=== PATIENT | female | born 1980 | race Caucasian/White ===

== ENCOUNTER 2017-01-16 10:30 | Inpatient (IN) | payer OTHER ==
[~2017-01-16 10:30] MED LIST: CITRIC ACID/SODIUM CITRATE 30 ML UNIT-DOSE CUP PO ONE; ELECTROLYTE-148 SOLN 500 ML IV ONE
--- NOTE | 2017-01-16 10:50 | HP ---
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: Alzheimer's, CVA, Dementia, Migraine, Multiple Sclerosis, Peripheral Neuropathy, Parkinson's, Seizure, Syncope, TIA, Vertigo, Other Cardiovascular: No: AFIB, Aneurysm, Aortic Insufficiency, Aortic Stenosis, CAD, CHF, Deep Vein Thrombosis, HTN, Hyperlipdemia, PA, Mitral Insufficiency, Mitral Stenosis, Murmur, Pulmonary Hypertension, Other Pulmonary: No: Asthma, Bronchitis, Cancer, COPD, O2 Dependent, Pneumonia, Previously Intubated, Pulmonary Embolus, Pulmonary Fibrosis, Sleep Apnea, Other Gastrointestinal: No: Ascites, Cancer, Constipation, Crohn's Disease, Diverticulitis, Diverticulosis, Esophageal Varices, Gastritis, GERD, GI Bleed, Hemorrhoids, Hiatal Hernia, Inflamatory Bowel Disease, Irritable Bowel Disease, Pancreatitis, Peptic Ulcer Disease, Ulcerative Colitis, Other Hepatobiliary: No: Cirrhosis, Cholelithiasis, Cholecystitis, Choledocholithiasis , Hepatitis A, Hepatitis B, Hepatitis C, Other Renal/: No: Renal Failure, Renal Inusuff, BPH, Cancer, Hematuria, Hemodialysis , Neurogenic Bladder, Renal Calculi, UTI, Other Reproductive: No: Ectopic , Endometriosis, Fibroids, PID, Polycystic Ovary Syndrome, Postmenopausal, Other Heme/Onc: No: Anemia, B12 Deficiency, Bleeding Disorder, Cancer, Current Chemotherapy, Current Radiation Therapy, Hemochromatosis, Hypercoaguable State, Myeloproliferative Synd, Sickle Cell Disease, Sickle Cell Trait, Thrombocytopenia, Other Infectious Disease: No: AIDS, C-Diff, Herpes Zoster, HIV, MRSA, STD's, Tuberculosis, VREF, Other Psych: No: Addictions, Anxiety, Bipolar, Depression, Panic, Psychosis, Schizophrenia, Other Musculoskeletal: No: Bursitis, Chronic low back pain, Hemiparesis, Hemiplegia, Osteoarthritis, Paraplegia, Other Rheumatology: No: Fibromyalgia, Gout, Lupus, Rheumatoid Arthritis, Sarcoidosis, Vasculitis, Other ENT: No: Allergic Rhinitis, Sinusitis, Other Endocrine: No: [place]'s Disease, Erich's Disease, Diabetes Insipidus, Diabetes Mellitus, Hyperparathyroidism, Hyperthyroidism, Hypothyroidism, Osteopenia, SIADH, Other Dermatology: No: Basal Cell, Cellulitis, Eczema, Melanoma, Psoriasis, Squamous Cell, Other - Past Surgical History Past Surgical History: No: None, AAA Repair, AICD, Amputation, Appendectomy, Arthrosocopy, AV Fistula/Graft, Bariatric Surgery, Breast Biopsy, Bypass, CABG, Carotid Endarterectomy, Cataract Removal, Cholecystectomy, Colectomy, Colonoscopy, Colostomy, Craniotomy, , Cystectomy, Hernia Repair, Hysterectomy, Ileal Conduit, Ileosotomy, Joint Replacement, Kidney Transplant, Laminectomy, Liver Transplant, Mastectomy, Nephrectomy, Oopherectomy, Orchiectomy, Permanent Pacemaker, Prostatectomy, Splenectomy, Stent, Thoracotomy , TURP, Tonsillectomy, Tubal Ligation, Upper Endoscopy, Valve Replacement, Vasectomy, Vein Stripping/Ligation - Smoking History Smoking history: Never smoked - Alcohol/Substance Use Hx Alcohol Use: No Home Medications - Allergies Allergies/Adverse Reactions: Allergies Allergy/AdvReac Type Severity Reaction Status Date / Time No Known Allergies Allergy Verified 01/16/17 10:48 Review of Systems - Review of Systems Constitutional: reports: No Symptoms Eyes: reports: No Symptoms HENT: reports: No Symptoms Neck: reports: No Symptoms Cardiovascular: reports: No Symptoms Respiratory: reports: No Symptoms Gastrointestinal: reports: No Symptoms Genitourinary: reports: No Symptoms Breasts: reports: No Symptoms Reported Musculoskeletal: reports: No Symptoms Integumentary: reports: No Symptoms Neurological: reports: No Symptoms Endocrine: reports: No Symptoms Hematology/Lymphatic: reports: No Symptoms Physical Examination Constitutional: Yes: Well Nourished Eyes: Yes: WNL HENT: Yes: WNL Neck: Yes: WNL Cardiovascular: Yes: WNL Respiratory: Yes: WNL Gastrointestinal: Yes: WNL ...Rectal Exam: Yes: WNL Renal/: Yes: WNL Musculoskeletal: Yes: WNL Extremities: Yes: WNL Integumentary: Yes: WNL Neurological: Yes: WNL ...Motor Strength: WNL Psychiatric: Yes: WNL Assessment/Plan as sabovve for cs labs
[2017-01-16 10:58] VITALS: BMI 28.5
[2017-01-16] MEDS: ELECTROLYTE-148 SOLN 1,000 ML IV SCH (11:05)
[2017-01-16] MEDS ORDERED: METHYLERGONOVINE MALEATE 0.2 MG/1 ML AMP IM PRN (12:05)
[2017-01-16] MEDS ORDERED: IBUPROFEN 600 MG TABLET (FP) PO PRN (12:05)
[2017-01-16] MEDS ORDERED: ONDANSETRON 4 MG/2 ML VIAL IVPB PRN (12:45)
[2017-01-16] MEDS: IBUPROFEN 800 MG/8 ML IJ IVPB PRN ×2 (14:25→21:36)
[2017-01-16] MEDS ORDERED: INFLUENZA VACCINE 45 MCG/0.5 ML (MDV 16-17) IM ONE (15:28)
[2017-01-16] MEDS: OXYTOCIN 20 UNITS in 0.9% NS 1,000 ML IV SCH (16:39)
[2017-01-16] MEDS: DEXTROSE 5%-LACTATED RINGERS 1,000 ML IV SCH (16:43)
[2017-01-16] MEDS: FERROUS SO4 325 MG TABLET (FP) PO SCH (17:31)
[2017-01-17] MEDS: IBUPROFEN 800 MG/8 ML IJ IVPB PRN (05:46)
[2017-01-17 08:18] LABS: BASOPHIL 0.6 % (0-2.0); EOSINOPHIL 1.1 % (0-4.5); MCH 26.7 pg (25.7-33.7); MCHC 31.9 g/dl (32.0-36.0); MEAN CELL VOLUME 83.6 fl (80-96); MEAN PLT VOLUME 9.4 fl (7.5-11.1); NEUTROPHILS 81.5 % (42.8-82.8); PLATELET COUNT 171 K/MM3 (134-434); RDW 17.2 % (11.6-15.6)
[2017-01-17] MEDS: FERROUS SO4 325 MG TABLET (FP) PO SCH ×2 (09:41→21:54)
[2017-01-17] MEDS ORDERED: INFLUENZA VACCINE 45 MCG/0.5 ML (MDV 16-17) IM ONE (10:00)
[2017-01-17] MEDS ORDERED: DIPHTH,PERTUSS(ACELL),TET 0.5 ML DISP.SYRIN IM ONE (10:00)
[2017-01-17] MEDS ORDERED: INFLUENZA VACCINE 60 MCG/0.5 ML (P/F DISP.SYRIN 16-17) IM ONE (10:00)
--- NOTE | 2017-01-17 10:10 | PN ---
Post Progress Note - Subjective Subjective: c/oo pain only while getting out of bed. voided twice after newman was discontinued Post Day: 1 Type of Delivery: Primary C/S Vital Signs: Vital Signs Temperature 98.5 F 01/17/17 06:00 Pulse Rate 91 H 01/17/17 06:00 Respiratory Rate 18 01/17/17 06:00 Blood Pressure 121/72 01/17/17 06:00 O2 Sat by Pulse Oximetry (%) 100 01/16/17 14:00 Breast Exam: Yes: Soft, Other (plans to BF ). No: Engorged Uterus: Yes: Fundus Firm, Fundus below umbilicus Incision: Yes: Dressing dry and intact. No: Redness, Oozing Abdomen/GI: Yes: Abdomen soft (bs active), Tender, Passing flatus, Tolerating PO (lear liqiuds ). No: Abdominal Distention Lochia: Yes: Rubra Lochia, amount: Moderate Extremities: Yes: Calves non-tender Perineum: Yes: Intact Activity: Ambulating - Labs Labs: CBC WBC 11.0 K/mm3 (4.0-10.0) H 01/17/17 07:30 RBC 3.29 M/mm3 (3.60-5.2) L D 01/17/17 07:30 Hgb 8.8 GM/dL (10.7-15.3) L D 01/17/17 07:30 Hct 27.5 % (32.4-45.2) L D 01/17/17 07:30 MCV 83.6 fl (80-96) 01/17/17 07:30 MCHC 31.9 g/dl (32.0-36.0) L 01/17/17 07:30 RDW 17.2 % (11.6-15.6) H 01/17/17 07:30 Plt Count 171 K/MM3 (134-434) D 01/17/17 07:30 MPV 9.4 fl (7.5-11.1) 01/17/17 07:30 Neutrophils % 81.5 % (42.8-82.8) 01/17/17 07:30 Lymphocytes % 9.4 % (8-40) D 01/17/17 07:30 Monocytes % 7.4 % (3.8-10.2) 01/17/17 07:30 Eosinophils % 1.1 % (0-4.5) 01/17/17 07:30 Basophils % 0.6 % (0-2.0) 01/17/17 07:30 Assessment/Plan poc/section stable anemia plan ct po care
--- NOTE | 2017-01-17 10:36 | PN ---
Progress Note (short form) - Note Progress Note: 36F POD1 s/p C section under spinal with duramorph. Pt is doing well, states that pain is well controlled, reports no anesthetic complications. AVSS, sensory and motor function is intact in both lower extremities.
[2017-01-17] MEDS: ACETAMINOPHEN 325 MG TABLET (FP) PO PRN ×3 (12:46→23:41)
[2017-01-17] MEDS: SIMETHICONE 80 MG TAB.CHEW (FP) PO PRN ×3 (12:46→23:41)
[2017-01-17] MEDS: IBUPROFEN 600 MG TABLET (FP) PO PRN ×3 (12:47→23:41)
--- NOTE | 2017-01-18 06:51 | PN ---
Post Progress Note Post Day: 2 Type of Delivery: Primary C/S Vital Signs: Vital Signs Temperature 98.9 F 01/17/17 22:00 Pulse Rate 74 01/17/17 22:00 Respiratory Rate 18 01/17/17 22:00 Blood Pressure 108/59 01/17/17 22:00 O2 Sat by Pulse Oximetry (%) 100 01/16/17 14:00 Breast Exam: Yes: Soft Uterus: Yes: Fundus Firm Incision: Yes: Dressing dry and intact Abdomen/GI: Yes: Abdomen soft Lochia: Yes: Rubra Lochia, amount: Small Extremities: Yes: Calves non-tender Perineum: Yes: Intact - Labs Labs: CBC WBC 11.0 K/mm3 (4.0-10.0) H 01/17/17 07:30 RBC 3.29 M/mm3 (3.60-5.2) L D 01/17/17 07:30 Hgb 8.8 GM/dL (10.7-15.3) L D 01/17/17 07:30 Hct 27.5 % (32.4-45.2) L D 01/17/17 07:30 MCV 83.6 fl (80-96) 01/17/17 07:30 MCHC 31.9 g/dl (32.0-36.0) L 01/17/17 07:30 RDW 17.2 % (11.6-15.6) H 01/17/17 07:30 Plt Count 171 K/MM3 (134-434) D 01/17/17 07:30 MPV 9.4 fl (7.5-11.1) 01/17/17 07:30 Neutrophils % 81.5 % (42.8-82.8) 01/17/17 07:30 Lymphocytes % 9.4 % (8-40) D 01/17/17 07:30 Monocytes % 7.4 % (3.8-10.2) 01/17/17 07:30 Eosinophils % 1.1 % (0-4.5) 01/17/17 07:30 Basophils % 0.6 % (0-2.0) 01/17/17 07:30 Assessment/Plan asa selena oob reg diet pain control
[2017-01-18] MEDS: SIMETHICONE 80 MG TAB.CHEW (FP) PO PRN ×2 (08:05→15:35)
[2017-01-18] MEDS: IBUPROFEN 600 MG TABLET (FP) PO PRN ×2 (08:06→15:36)
[2017-01-18] MEDS: oxyCODONE HCL 5 MG TABLET PO PRN ×2 (08:07→15:35)
[2017-01-18] MEDS: FERROUS SO4 325 MG TABLET (FP) PO SCH ×2 (08:11→17:23)
[2017-01-18] MEDS: DEXTROSE 5%-LACTATED RINGERS 1,000 ML IV SCH (12:00)
[2017-01-18] MEDS: ELECTROLYTE-148 SOLN 1,000 ML IV SCH (12:00)
[2017-01-18] MEDS: OXYTOCIN 20 UNITS in 0.9% NS 1,000 ML IV SCH (12:23)
[2017-01-18] MEDS: BISACODYL 10 MG SUPP.RECT RC PRN (15:45)
[2017-01-18] MEDS ORDERED: oxyCODONE HCL 5 MG TABLET PO PRN (15:54)
[2017-01-19] MEDS: ACETAMINOPHEN 325 MG TABLET (FP) PO PRN ×2 (05:08→19:27)
[2017-01-19] MEDS: oxyCODONE HCL 5 MG TABLET PO PRN ×3 (05:08→19:26)
[2017-01-19 08:11] LABS: MCH 27.7 pg (25.7-33.7); MCHC 32.9 g/dl (32.0-36.0); MEAN CELL VOLUME 84.3 fl (80-96); PLATELET COUNT 217 K/MM3 (134-434); RDW 16.9 % (11.6-15.6); WHITE BLOOD COUNT 10.2 K/mm3 (4.0-10.0)
--- NOTE | 2017-01-19 08:13 | PN ---
Progress Note (short form) - Note Progress Note: pod 2 doing well , has cramps Last Vital Signs Temp Pulse Resp BP Pulse Ox 98.1 F 78 18 118/77 100 01/18/17 22:00 01/18/17 22:00 01/18/17 22:00 01/18/17 22:00 01/16/17 14:00 abdomen soft, no distension, no cva , incision dry, clean no calf tenderness no excess vaginal bleeding impression pod 2 afebrile plan cbc , ambulate
[2017-01-19 09:28] LABS: METAMYELOCYTE 1 % (0-2); PLATELET ESTIMATE ADEQUATE (NORMAL)
[2017-01-19] MEDS: SIMETHICONE 80 MG TAB.CHEW (FP) PO PRN ×2 (11:07→19:27)
[2017-01-19] MEDS: FERROUS SO4 325 MG TABLET (FP) PO SCH ×2 (11:07→17:24)
[2017-01-19] MEDS: IBUPROFEN 600 MG TABLET (FP) PO PRN (11:14)
[2017-01-19] MEDS: BISACODYL 10 MG SUPP.RECT RC PRN (20:57)
[2017-01-20] MEDS: IBUPROFEN 600 MG TABLET (FP) PO PRN (08:36)
[2017-01-20] MEDS: ACETAMINOPHEN 325 MG TABLET (FP) PO PRN (08:37)
[2017-01-20] MEDS: SIMETHICONE 80 MG TAB.CHEW (FP) PO PRN (08:38)
[2017-01-20] MEDS: FERROUS SO4 325 MG TABLET (FP) PO SCH (09:12)
--- NOTE | 2017-01-20 11:07 | PN ---
Post Progress Note - Subjective Subjective: no c/o dizziness , no c/o pain voiding without difficulty Post Day: 4 Type of Delivery: Primary C/S Vital Signs: Vital Signs Temperature 97.9 F 01/19/17 22:00 Pulse Rate 92 H 01/19/17 22:00 Respiratory Rate 18 01/19/17 22:00 Blood Pressure 126/82 01/19/17 22:00 O2 Sat by Pulse Oximetry (%) 100 01/16/17 14:00 Breast Exam: Yes: Soft. No: Engorged Uterus: Yes: Fundus Firm, Fundus below umbilicus Incision: Yes: Mariano intact (to be removed ). No: Redness, Oozing Abdomen/GI: Yes: Abdomen soft, Passing flatus, Tolerating PO (diet). No: Abdominal Distention, Tender Lochia: Yes: Rubra Lochia, amount: Moderate Extremities: Yes: Calves non-tender Perineum: Yes: Intact Activity: Ambulating - Labs Labs: CBC WBC 10.2 K/mm3 (4.0-10.0) H 01/19/17 07:20 RBC 3.13 M/mm3 (3.60-5.2) L 01/19/17 07:20 Hgb 8.7 GM/dL (10.7-15.3) L 01/19/17 07:20 Hct 26.3 % (32.4-45.2) L 01/19/17 07:20 MCV 84.3 fl (80-96) 01/19/17 07:20 MCHC 32.9 g/dl (32.0-36.0) 01/19/17 07:20 RDW 16.9 % (11.6-15.6) H 01/19/17 07:20 Plt Count 217 K/MM3 (134-434) D 01/19/17 07:20 MPV 9.0 fl (7.5-11.1) 01/19/17 07:20 Neutrophils % 77.0 % (42.8-82.8) 01/19/17 07:20 Lymphocytes % 12.0 % (8-40) D 01/19/17 07:20 Monocytes % 4.0 % (3.8-10.2) 01/19/17 07:20 Eosinophils % 2.0 % (0-4.5) D 01/19/17 07:20 Basophils % 2.0 % (0-2.0) D 01/19/17 07:20 Metamyelocytes 1 % (0-2) 01/19/17 07:20 Myelocytes 1 % (0-2) 01/19/17 07:20 Differential Comment Manual diff done 01/19/17 07:20 Reactive Lymphocytes 1 % (0-80) 01/19/17 07:20 Platelet Estimate Adequate (NORMAL) 01/19/17 07:20 Assessment/Plan stable. anemia well compensated, .counselled discharge today, follow in the clinic in 1wk
[2017-01-20 13:17] VITALS: BP 105/79; PULSE 84; TEMP 98
--- NOTE | 2017-01-23 13:13 | PATH ---
Surgical Pathology Report Patient Name: BROOKLYN MARTIN Med. Rec. #: [id number] /Age/Gender: 1980 (Age: 36) / F Account: [id number] Location: [facility] OBS/RESIDENTIAL INSTRUCTOR Taken: 01/16/2017 Received: 01/17/2017 Reported: 01/23/2017 Physicians: Benjamin Clark M.D. Specimen(s) Received PLACENTA Clinical History , breech presentation; advanced maternal age, marginal cord insertion, hepatitis-age 4 Primary c/section Final Diagnosis PLACENTA DELIVERY: FOCALLY DISRUPTED, SMALL (<400 GM), THIRD TRIMESTER PLACENTA WITH MILD PREVILLOUS, PERIVILLOUS, AND PRECHORIONIC FIBRIN DEPOSITION, THREE VESSEL UMBILICAL CORD WITH MARGINAL INSERTION, AND PLACENTAL MEMBRANES FOCAL ACUTE CHORIOAMNIONITIS. Electronically Signed Khurram Reynolds M.D. Gross Description The specimen is received fresh, labeled "placenta" and is a 363 gram, 16.0 x 12.5 x 2.6 cm placenta with attached membranes and umbilical cord. The attached membranes are deshpande, translucent with focal opacities and insert marginally. The umbilical cord measures 30 cm in length and averages 0.9 cm in diameter. The cord inserts at the margin. No true knots or strictures are identified. Cut surface of the umbilical cord reveals 3 vessels. The surface is small-blue with fibrin deposition and appropriate caliber vessels. The maternal surface is red-brown with focal defects. Sectioning reveals red-brown, spongy parenchyma. No focal lesions are identified. Principal Examiner sections are submitted in three cassettes as follows: 1- membrane rolls and umbilical cord; 2-3- full thickness sections of placenta. /01/22/2017 [facility]01/22/2017
--- NOTE | 2017-02-08 09:38 | OP ---
DATE OF OPERATION: DATE OF DICTATION: 02/07/2017 HISTORY OF PRESENT ILLNESS: This is a 36-year-old female with breech presentation. POSTOPERATIVE DIAGNOSIS: This is a 36-year-old female with breech presentation. PROCEDURE: Primary section. OPERATING SURGEON: Benjamin Clark MD ROLFER: MICHAEL Daniel COMPLICATIONS: None. FINDINGS: Taye breech presentation DISPOSITION: To recovery room in stable condition. DESCRIPTION OF PROCEDURE: Patient was consented prior to entering the operating suite. Patient was put on the table in dorsal supine position, prepped and draped in the usual sterile fashion. The transverse incision on the lower abdomen Pfannenstiel was created. This was carried down to the level of the fascia. The fascia was then transected to the left and right of midline. The muscles were then split digitally in the midline. The gravid uterus was then identified after entering the peritoneum. Bladder flap was created. Transverse incision on the uterus was made with a gush of fluid. The was then delivered atraumatically through the incision with the Pinard maneuvers. The cord was then clamped and cut, and the infant ws then handed off to the awaiting regulation supervisor. At this time, the inferior aspect of the uterus was cleaned with a semi-wet lap pad. The uterus was then closed in a double layer with Biosyn suture. The peritoneum was then approximated with the muscle. The fascia was then closed with Biosyn suture. The skin laila were applied. The patient was sent to the recovery room in stable alert condition. Mark [id number]
--- NOTE | 2017-03-15 07:47 | DS ---
DATE OF ADMISSION: 01/16/2017 DATE OF DISCHARGE: 01/20/2017 The patient was seen throughout the hospital course post , no issues or concerns. The patient was subsequently discharged home. LISANDRO BELTRE M.D. [id number]
== END 2017-01-20 12:45 | disposition home or self-care (01) | DRG 540 ==
LOC: JLDR 10:30 → J3W 15:03
PROVIDERS: ADMIT Obstetrics & Gynecology; ATTEND Obstetrics & Gynecology
PROC: 10D00Z1 Extraction of Products of Conception, Low, Open Approach (ICD-10-PCS; principal; 2017-01-16)
DX: O32.1XX0 Maternal care for breech presentation, not applicable or unspecified (principal); O09.513 Supervision of elderly primigravida, third trimester; O99.013 Anemia complicating pregnancy, third trimester; O41.1230 Chorioamnionitis, third trimester, not applicable or unspecified; Z3A.39 39 weeks gestation of pregnancy; Z37.0 Single live birth
CPT/HCPCS: 36415; 85025; 88307-TC; 90686; 90715; G0008

== ENCOUNTER 2017-03-09 17:23 | Emergency (ER) | payer OTHER ==
[2017-03-09 17:42] VITALS: BP 128/82; PULSE 78; TEMP 97.7; BMI 26.6
--- NOTE | 2017-03-09 18:52 | PDOC ---
History of Present Illness - General Chief Complaint: Pain Stated Complaint: PAIN UNDER ARM Time Seen by Provider: 03/09/17 18:14 History Source: Patient Exam Limitations: No Limitations - History of Present Illness Initial Comments: 03/10/17 12:34 CHIEF COMPLAINT: Painful right axilla HISTORY OF PRESENT ILLNESS: Patient is a 36-year-old female, presents for evaluation of painful right axilla. Patient states she felt "a small ball" 2 months, has not yet had menses. Denies trauma to the area, no abscess. Does have history of abscess to left arm. No fever. Past History - Past Medical History Allergies/Adverse Reactions: Allergies Allergy/AdvReac Type Severity Reaction Status Date / Time No Known Allergies Allergy Verified 03/09/17 17:33 Home Medications: Ambulatory Orders Ibuprofen [Motrin -] 600 mg PO QID #28 tablet 01/18/17 Asthma: No Cancer: No Cardiac Disorders: No Diabetes: No HTN: No Seizures: No Thyroid Disease: No Other medical history: PATIENT DENIES MEDICAL PROBLEMS - Immunization History Immunization Up to Date: Yes - Psycho/Social/Smoking Cessation Hx Suicidal Ideation: No Smoking History: Never smoked Have you smoked in the past 12 months: No Hx Alcohol Use: No Drug/Substance Use Hx: No Hx Substance Use Treatment: No Review of Systems - Review of Systems Constitutional: No: Symptoms Reported HEENTM: No: Symptoms Reported Respiratory: No: Symptoms reported Cardiac (ROS): No: Symptoms Reported Musculoskeletal: No: Symptoms Reported Integumentary: Yes: Lumps (palpable small mass measuring approximately 1 cm to right axilla no erythema, no edema, no warmth to area.) Neurological: No: Symptoms reported Hematologic/Lymphatic: Yes: Lymph Node Abnormalities (lymph node versus abscess to right axilla) All Other Systems: Reviewed and Negative *Physical Exam - Vital Signs Last Vital Signs Temp Pulse Resp BP Pulse Ox 97.7 F 78 18 128/82 100 03/09/17 17:29 03/09/17 17:29 03/09/17 17:29 03/09/17 17:29 03/09/17 17:29 - Physical Exam General Appearance: Yes: Appropriately Dressed. No: Apparent Distress Neck: negative: Tender lateral, Tender midline Respiratory/Chest: positive: Lungs Clear, Normal Breath Sounds Cardiovascular: positive: Regular Rhythm, Regular Rate Lymphatic: negative: Adenopathy Extremity: positive: Normal Capillary Refill, Normal Inspection, Tender, Other ( palpable small mass measuring approximately 1 cm to right axilla no surrounding erythema, edema or warmth). negative: Swelling, Erythema, Inflammation Integumentary: positive: Other (breast examination with no dimpling, no palpable mass, no erythema edema no nipple discharge.). negative: Erythema, Rash, Swelling, Ecchymosis, Bruising Neurologic: positive: Fully Oriented, Alert, Normal Mood/Affect Medical Decision Making - Medical Decision Making 03/10/17 12:42 A/P: Patient here for evaluation of painful mass to right axilla at this time there is no clinical evidence of infectious process there is no erythema edema or warmth to area there is a small palpable nodule to right axilla which may be lymph node versus beginning stages of an abscess. Her ORACLE BUSINESS ANALYST for follow-up post delivery 2 months ago this week, will monitor area for any increased inflammation. Breast is benign, there is no erythema edema or palpable mass to area. Patient verbalized understanding will need to follow-up for further evaluation and monitor area closely. *DC/Admit/Observation/Transfer Diagnosis at time of Disposition: Axillary lump Qualifiers: Laterality: right Qualified Code(s): R22.31 - Localized swelling, mass and lump , right upper limb - Discharge Dispostion Disposition: HOME Condition at time of disposition: Good Admit: No - Patient Instructions Additional Instructions: Motrin for pain Recommend follow up wit ORACLE BUSINESS ANALYST for eval of lump. Monitor for redness, increase size, warmth to area or sign of infection.
== END 2017-03-09 18:53 | disposition home or self-care (01) ==
LOC: JERFT 17:23 → JER 17:23 → JERFT 18:53
DX: R22.31 Localized swelling, mass and lump, right upper limb (principal)
CPT/HCPCS: 99281-25

== ENCOUNTER 2018-12-24 16:06 | Emergency (ER) | payer OTHER ==
[2018-12-24 17:15] VITALS: BP 130/69; PULSE 74; TEMP 98.3; BMI 25.4
--- NOTE | 2018-12-24 17:16 | PDOC ---
Rapid Medical Evaluation Medical Evaluation: Allergies Allergy/AdvReac Type Severity Reaction Status Date / Time No Known Allergies Allergy Verified 03/09/17 17:33 I have performed a brief in-person evaluation of this patient. The patient presents with a chief complaint of: c/o back pain after bending down to pick something; pain worse with movement; took Motrin prior to coming Pertinent physical exam findings: +TTP along upper/mid/lower paraspinal TTP; no focal deficits, abdomen soft, ND, no CVA tenderness I have ordered the following: UCG The patient will proceed to the ED for further evaluation. 12/24/18 17:10
[2018-12-24 17:31] LABS: URINE APPEARANCE SLCLOUDY; URINE BILIRUBIN NEGATIVE (<2.0 mg/dL); URINE COLOR YELLOW; URINE GLUCOSE (UA) NEGATIVE (NEGATIVE); URINE KETONE NEGATIVE (NEGATIVE); URINE LEUK ESTERASE NEGATIVE (NEGATIVE); URINE NITRITE NEGATIVE (NEGATIVE); URINE PROTEIN NEGATIVE (NEGATIVE); URINE UROBILINOGEN NEGATIVE mg/dL (0.2-1.0)
[2018-12-24 17:45] LABS: EPI CELLS RARE /HPF (FEW); URINE BACTERIA RARE /hpf (NONE SEEN); URINE MUCUS RARE
[2018-12-24] MEDS ORDERED: CYCLOBENZAPRINE HCL 10 MG TABLET (FP) PO ONE (18:17)
[2018-12-24] MEDS ORDERED: KETOROLAC TROMETHAMINE 60 MG/2 ML VIAL IM ONE (18:17)
--- NOTE | 2018-12-24 18:17 | PDOC ---
History of Present Illness - General History Source: Patient Exam Limitations: No Limitations - History of Present Illness Initial Comments: 12/24/18 18:23 The patient is a 38 year old female with no PMH who presents to the ER with upper back pain today. Patient states she was bending over to reach something and when she stood up she felt her upper back tightening up. Patient reports the upper back pain radiated to her right arm and rib cage with intermittent difficulty breathing secondary to the pain. She denies any recent trauma or falls. Patient has not taken any pain meds at home. She reports similar back pain in the past as she used to do work that required heavy lifting in [facility]. Patient denies numbness/tingling/weakness, bowel or bladder incontinence, difficulty walking. Allergies: NKDA Social Hx: No reported alcohol, drug or cigarette use. Surgeries: <Mirlande Jama - Last Filed: 12/24/18 18:22> <Shannon Hedrick - Last Filed: 12/24/18 18:52> - General Chief Complaint: Back Pain Stated Complaint: BACK PAIN Time Seen by Provider: 12/24/18 17:10 Past History <Mirlande Jama - Last Filed: 12/24/18 18:22> - Past Medical History Asthma: No Cancer: No Cardiac Disorders: No COPD: No Diabetes: No HTN: No Seizures: No Thyroid Disease: No - Immunization History Immunization Up to Date: Yes - Suicide/Smoking/Psychosocial Hx Smoking History: Never smoked Have you smoked in the past 12 months: No Hx Alcohol Use: No Drug/Substance Use Hx: No Hx Substance Use Treatment: No <Shannon Hedrick - Last Filed: 12/24/18 18:52> - Past Medical History Allergies/Adverse Reactions: Allergies Allergy/AdvReac Type Severity Reaction Status Date / Time No Known Allergies Allergy Verified 12/24/18 17:12 Home Medications: Ambulatory Orders Ibuprofen [Motrin -] 600 mg PO QID #28 tablet 01/18/17 Cyclobenzaprine HCl [Flexeril -] 10 mg PO HS #10 tablet 12/24/18 Ibuprofen 600 mg PO Q6H #30 tablet 12/24/18 Review of Systems - Review of Systems Able to Perform ROS?: Yes Comments:: 12/24/18 18:27 ADULT ROS GENERAL/CONSTITUTIONAL: No fever or chills. No weakness. HEAD, EYES, EARS, NOSE AND THROAT: No change in vision. No ear pain or discharge. No sore throat. CARDIOVASCULAR: No chest pain or shortness of breath. RESPIRATORY: No cough, wheezing, or hemoptysis. GASTROINTESTINAL: No nausea, vomiting, diarrhea or constipation. GENITOURINARY: No dysuria, frequency, or change in urination. MUSCULOSKELETAL: No joint or muscle swelling or pain. No neck pain. (+) back pain. SKIN: No rash NEUROLOGIC: No headache, vertigo, loss of consciousness, or change in strength/ sensation. ENDOCRINE: No increased thirst. No abnormal weight change. HEMATOLOGIC/LYMPHATIC: No anemia, easy bleeding, or history of blood clots. ALLERGIC/IMMUNOLOGIC: No hives or skin allergy. <Mirlande Jama - Last Filed: 12/24/18 18:22> *Physical Exam - Vital Signs Last Vital Signs Temp Pulse Resp BP Pulse Ox 98.3 F 74 20 130/69 99 12/24/18 17:12 12/24/18 17:12 12/24/18 17:12 12/24/18 17:12 12/24/18 17:12 - Physical Exam Comments: 12/24/18 18:28 ADULT EXAM GENERAL: Awake, alert, and fully oriented, in no acute distress HEAD: No signs of trauma EYES: PERRLA, EOMI, sclera anicteric, conjunctiva clear ENT: Auricles normal inspection, hearing grossly normal, nares patent, oropharynx clear without exudates. Moist mucosa NECK: Normal ROM, supple, no lymphadenopathy, JVD, or masses LUNGS: Breath sounds equal, clear to auscultation bilaterally. No wheezes, and no crackles HEART: Regular rate and rhythm, normal S1 and S2, no murmurs, rubs or gallops ABDOMEN: Soft, nontender, normoactive bowel sounds. No guarding, no rebound. No masses BACK: (+) Tenderness to the right upper and right lower back, T8-T12. (+) Palpable spasm to the thoracic paraspinal area. FROM. Strength 5/5 in the upper extremities. Steady gait. EXTREMITIES: Normal range of motion, no edema. No clubbing or cyanosis. No cords , erythema, or tenderness NEUROLOGICAL: Cranial nerves II through XII grossly intact. Normal speech, normal gait SKIN: Warm, Dry, normal turgor, no rashes or lesions noted. <Mirlande Jama - Last Filed: 12/24/18 18:22> - Vital Signs Last Vital Signs Temp Pulse Resp BP Pulse Ox 98.3 F 74 20 130/69 99 12/24/18 17:12 12/24/18 17:12 12/24/18 17:12 12/24/18 17:12 12/24/18 17:12 <Shannon Hedrick - Last Filed: 12/24/18 18:52> Moderate Sedation - Procedure Monitoring Vital Signs: Procedure Monitoring Vital Signs Temperature 98.3 F 12/24/18 17:12 Pulse Rate 74 12/24/18 17:12 Respiratory Rate 20 12/24/18 17:12 Blood Pressure 130/69 12/24/18 17:12 O2 Sat by Pulse Oximetry (%) 99 12/24/18 17:12 <Mirlande Jama - Last Filed: 12/24/18 18:22> - Procedure Monitoring Vital Signs: Procedure Monitoring Vital Signs Temperature 98.3 F 12/24/18 17:12 Pulse Rate 74 12/24/18 17:12 Respiratory Rate 20 12/24/18 17:12 Blood Pressure 130/69 12/24/18 17:12 O2 Sat by Pulse Oximetry (%) 99 12/24/18 17:12 <Shannon Hedrick - Last Filed: 12/24/18 18:52> ED Treatment Course - ADDITIONAL ORDERS Additional order review: Laboratory Results 12/24/18 12/24/18 17:22 17:22 Urine Color Yellow Urine Appearance Slcloudy Urine pH 5.0 D Ur Specific [place] 1.014 Urine Protein Negative Urine Glucose (UA) Negative Urine Ketones Negative Urine Blood 3+ H Urine Nitrite Negative Urine Bilirubin Negative Urine Urobilinogen Negative Ur Leukocyte Esterase Negative Urine WBC (Auto) <1 Urine RBC (Auto) 67 Ur Epithelial Cells Rare Urine Bacteria Rare Urine Mucus Rare Urine HCG, Qual Negative <Mirlande Jama - Last Filed: 12/24/18 18:22> - ADDITIONAL ORDERS Additional order review: Laboratory Results 12/24/18 12/24/18 17:22 17:22 Urine Color Yellow Urine Appearance Slcloudy Urine pH 5.0 D Ur Specific [place] 1.014 Urine Protein Negative Urine Glucose (UA) Negative Urine Ketones Negative Urine Blood 3+ H Urine Nitrite Negative Urine Bilirubin Negative Urine Urobilinogen Negative Ur Leukocyte Esterase Negative Urine WBC (Auto) <1 Urine RBC (Auto) 67 Ur Epithelial Cells Rare Urine Bacteria Rare Urine Mucus Rare Urine HCG, Qual Negative <Shannon Hedrick - Last Filed: 12/24/18 18:52> Medical Decision Making - Medical Decision Making 12/24/18 18:46 A portion of this note was documented by scribe services under my direction. I have reviewed the details of the note, within reason, and agree with the documentation with the following case summary and management plan written by me. Pt presents with one day of upper back pain s/p bending over to pick something up A/P: Thoracic muscle spasm TTP of the R upper paraspinus muscles from T8-T12 Pt is neurologically intact Toradol, lidocaine patch, flexeril given with relief of symptoms DC home with ortho spine follow up I discussed the physical exam findings, ancillary test results and final diagnoses with the patient. I answered all of the patient's questions. The patient was satisfied with the care received and felt comfortable with the discharge plan and treatment plan. The Patient agrees to follow up with the primary care physician/specialist within 24-72 hours. Return precautions were given. <Shannon Hedrick - Last Filed: 12/24/18 18:52> *DC/Admit/Observation/Transfer - Attestations Scribe Attestion: 12/24/18 18:29 Documentation prepared by Mirlande Jama, acting as medical device sales representative for Bo Walton MD. <Mirlande Jama - Last Filed: 12/24/18 18:22> - Discharge Dispostion Decision to Admit order: No <Shannon Hedrick - Last Filed: 12/24/18 18:52> Diagnosis at time of Disposition: Thoracic back pain Qualifiers: Chronicity: acute Back pain laterality: bilateral Qualified Code(s): M54.6 - Pain in thoracic spine - Discharge Dispostion Disposition: HOME Condition at time of disposition: Stable - Referrals Referrals: Jose Monroy MD, [facility] [Staff Physician] - - Patient Instructions Printed Discharge Instructions: DI for Thoracic Back Pain Additional Instructions: You have upper back pain due to a muscle spasm. Please take ibuprofen 800 mg 3 times a day not to exceed 3000 mg a day. You were also prescribed Flexeril. Please take this medication every 8 hours for the first day. Then take the medication before you go to bed. Do not drive after taking this medication as it may make you sleepy. You may use warm compresses on your back to help with her symptoms. Please follow-up with your primary care doctor. If your symptoms do not resolve in 3-5 days, follow-up with orthopedics. A referral has been provided for you. Return to the emergency department if you have worsening back pain, bladder or bowel incontinence, numbness and tingling in her legs, changes in the way you walk, or any new or worsening symptoms. Tiene dolor en la parte superior de la espalda debido a un espasmo muscular. [place] ibuprofeno 800 mg 3 veces al da sin exceder los 3000 mg al da. Tambin te recetaron Flexeril. [place] tomás medicamento cada 8 horas ara el primer da. Luego tome el medicamento antes de irse a la cama. No maneje despus de [place]ila tomás medicamento, ya que puede causarle sueo. Puede usar compresas tibias en la espalda para ayudar con lizzy sntomas. Por favor germán un seguimiento con mckinley mdico de atencin primaria. Si lizzy sntomas no se resuelven en 3-5 lee, germán un seguimiento con ortopedia. Se jack proporcionado chelly referencia para usted. Regrese a la [facility] de emergencias si tiene empeoramiento del dolor de espalda, incontinencia de la vejiga o el intestino, entumecimiento y hormigueo en las piernas, cambios en la forma en que camina o sntomas nuevos o que empeoran. - Post Discharge Activity Forms/Work/School Notes: Back to Work
[2018-12-24] MEDS ORDERED: LIDOCAINE 5% TOPICAL PATCH TP ONE (18:18)
[2018-12-24] MEDS ORDERED: KETOROLAC TROMETHAMINE 60 MG/2 ML VIAL ONE (18:20)
[2018-12-24] MEDS ORDERED: LIDOCAINE 5% TOPICAL PATCH ONE (18:20)
[2018-12-24] MEDS ORDERED: CYCLOBENZAPRINE HCL 10 MG TABLET (FP) ONE (18:20)
[2018-12-24] MEDS ORDERED: LIDOCAINE PATCH REMOVAL MC SCH (22:00)
== END 2018-12-24 18:59 | disposition home or self-care (01) ==
LOC: JERFT 16:06 → JER 16:06 → JERFT 18:59
PROC: 3E0233Z Introduction of Anti-inflammatory into Muscle, Percutaneous Approach (ICD-10-PCS; principal; 2018-12-24)
DX: M54.6 Pain in thoracic spine (principal); M62.830 Muscle spasm of back; X50.1XXA Overexertion from prolonged static or awkward postures, initial encounter; Y93.89 Activity, other specified; Y92.89 Other specified places as the place of occurrence of the external cause; Y99.8 Other external cause status
CPT/HCPCS: 81003; 81015; 84703; 96372; 99282-25